=== PATIENT | female | born 1965 | race Caucasian/White ===

== ENCOUNTER 2016-11-04 14:33 | Emergency (ER) | payer OTHER ==
[2016-11-04] MEDS ORDERED: NS 1,000 ML IV ONE (15:08)
--- NOTE | 2016-11-04 15:12 | EDPHY ---
H & P Stated Complaint: DIZZY/LIGHTHEADED/SOB FOR THE LAST MONTH Time Seen by Provider: 11/04/16 14:59 HPI/ROS: CHIEF COMPLAINT: Dyspnea HISTORY OF PRESENT ILLNESS: There is a 51-year-old female who comes to the emergency department sent from her primary care doctor Jazz Whitmore. She has been complaining of mild dyspnea intermittently for the last month they became more constant over the last 3 days. She states that has not intensified but is simply more prolonged. She has not had a fever, cough, sore throat, runny nose etc. She denies chest pain. She does not take any hormones. She does not smoke. She has not had any recent travel or surgeries. No leg pain or swelling. She presented today to her doctor with a heart rate of 96 and saturations of 98% on room air. She also complains of intermittent lightheadedness. She states that this most often occurs when she tried to get out of bed in the morning on Wednesday and Wednesday. She felt like she was going to faint but did not. She laid down for a little while longer and was eventually better enough to get up. She has not gone to work yesterday or today. She was able to exercise for 1 hour yesterday Without dyspnea. She denies having any history of cardiac or pulmonary disease. REVIEW OF SYSTEMS: Constitutional: denies: chills, fever, recent illness, recent injury EENTM: denies: blurred vision, double vision, nose congestion Respiratory: See HPI Cardiac: denies: chest pain, irregular heart rate, lightheadedness, palpitations Gastrointestinal/Abdominal: denies: abdominal pain, diarrhea, nausea, vomiting, blood streaked stools Genitourinary: denies: dysuria, frequency, hematuria, pain Musculoskeletal: denies: joint pain, muscle pain Skin: denies: lesions, rash, jaundice, bruising Neurological: denies: headache, numbness, paresthesia, tingling, dizziness, weakness Hematologic/Lymphatic: denies: blood clots, easy bleeding, easy bruising Immunologic/allergic: denies: HIV/AIDS, transplant EXAM: GENERAL: Well-appearing, well-nourished and in no acute distress. HEAD: Atraumatic, normocephalic. EYES: Pupils equal round and reactive to light, extraocular movements intact, sclera anicteric, conjunctiva are normal. ENT: TMs normal, nares patent, oropharynx clear without exudates. Moist mucous membranes. NECK: Normal range of motion, supple without lymphadenopathy or JVD. LUNGS: Breath sounds clear to auscultation bilaterally and equal. No wheezes rales or rhonchi. HEART: Regular rate and rhythm without murmurs, rubs or gallops. ABDOMEN: Soft, nontender, normoactive bowel sounds. No guarding, no rebound. No masses appreciated. BACK: No CVA tenderness, no spinal tenderness, step-offs or deformities EXTREMITIES: Normal range of motion, no pitting or edema. No clubbing or cyanosis. NEUROLOGICAL: Cranial nerves II through XII grossly intact. Normal speech, normal gait. 5/5 strength, normal movement in all extremities, normal sensation PSYCH: Normal mood, normal affect. SKIN: Warm, dry, normal turgor, no visible rashes or lesions. Source: Patient Exam Limitations: No limitations - Personal History LMP (Females 10-55): 15-21 Days Ago Current Tetanus/Diphtheria Vaccine: No - Medical/Surgical History Hx Asthma: No Hx Chronic Respiratory Disease: No Hx Diabetes: No Hx Cardiac Disease: No Hx Renal Disease: No Hx Cirrhosis: No Hx Alcoholism: No Hx HIV/AIDS: No Hx Splenectomy or Spleen Trauma: No Other PMH: DENIES - Family History Significant Family History: No pertinent family hx - Social History Smoking Status: Never smoked Alcohol Use: Sober Drug Use: None Constitutional: Initial Vital Signs Temperature (C) 36.6 C 11/04/16 14:43 Heart Rate 91 11/04/16 14:43 Respiratory Rate 20 11/04/16 14:43 Blood Pressure 162/105 H 11/04/16 14:43 O2 Sat (%) 98 11/04/16 14:43 O2 Delivery Mode Room Air Allergies/Adverse Reactions: Penicillins Allergy (Verified 11/04/16 14:42) Home Medications: Medication Instructions Recorded PRISTIQ 11/04/16 Medical Decision Making - Diagnostics EKG Interpretation: An EKG obtained and was read and documented in trace view. Please see trace view for full reading and report. Slight S waves in lead 3 only. No other acute ischemic changes or signs of right heart strain Imaging: Imaging Impressions Chest X-Ray 11/04/16 15:08 Impression: Negative chest.. ED Course/Re-evaluation: 5:20 a.m. the patient is asymptomatic. Her vital signs are stable. We discussed her lab results and EKG and chest x-ray which are reassuring. We discussed CT scan although at this point I do not feel that is necessary or indicated. She agrees. She agree to return if her symptoms return or worsen. Otherwise she will follow up with Dr. Whitmore. She understands we do not have a specific diagnosis to explain her intermittent pre syncopal symptoms or vague shortness of breath. Differential Diagnosis: Partial list of the Differential diagnosis considered include but were not limited to; pulmonary embolism, pneumonia, bronchitis, arrhythmia, acute coronary disease and although unlikely based on the history and physical exam, I also considered pneumothorax, dissection, sepsis, dehydration, electrolyte abnormality. I discussed these differential diagnoses and the plan with the patient as well as the usual and expected course. The patient understands that the diagnosis is provisional and that in medicine we are not always correct and that further workup is often warranted. Usual and customary warnings were given. All of the patient's questions were answered. The patient was instructed to return to the emergency department should the symptoms at all worsen or return, otherwise to followup with the physician as we discussed. - Data Points Laboratory Results: Laboratory Results 11/04/16 15:20 11/04/16 15:20 11/04/16 11/04/16 11/04/16 15:20 15:20 15:20 WBC RBC Hgb Hct MCV MCH MCHC RDW Plt Count MPV Neut % (Auto) Lymph % (Auto) Larue % (Auto) Eos % (Auto) Baso % (Auto) Nucleat RBC Rel Count Absolute Neuts (auto) Absolute Lymphs (auto) Absolute Monos (auto) Absolute Eos (auto) Absolute Basos (auto) Absolute Nucleated RBC Immature Gran % Immature Gran # D-Dimer < 0.27 ug/mLFEU ug/mLFEU (0.00-0.50) Sodium 135 mEq/L mEq/L (134-144) Potassium 3.7 mEq/L mEq/L (3.5-5.2) Chloride 99 mEq/L mEq/L (97-110) Carbon Dioxide 19 mEq/l L mEq/l (22-31) Anion Gap 17 mEq/L H mEq/L (8-16) BUN 23 mg/dL mg/dL (7-23) Creatinine 0.9 mg/dL mg/dL (0.6-1.0) Estimated GFR > 60 Glucose 89 mg/dL mg/dL (70-100) Calcium 9.7 mg/dL mg/dL (8.5-10.4) Troponin I < 0.012 ng/mL ng/mL (0-0.034) Beta HCG, Qual NEGATIVE 11/04/16 15:20 WBC 5.26 10^3/uL 10^3/uL (3.80-9.50) RBC 5.62 10^6/uL H 10^6/uL (4.18-5.33) Hgb 17.4 g/dL H g/dL (12.6-16.3) Hct 51.0 % H % (38.0-47.0) MCV 90.7 fL fL (81.5-99.8) MCH 31.0 pg pg (27.9-34.1) MCHC 34.1 g/dL g/dL (32.4-36.7) RDW 12.8 % % (11.5-15.2) Plt Count 227 10^3/uL 10^3/uL (150-400) MPV 9.0 fL fL (8.7-11.7) Neut % (Auto) 56.4 % % (39.3-74.2) Lymph % (Auto) 30.6 % % (15.0-45.0) Larue % (Auto) 11.4 % % (4.5-13.0) Eos % (Auto) 0.4 % L % (0.6-7.6) Baso % (Auto) 1.0 % % (0.3-1.7) Nucleat RBC Rel Count 0.0 % % (0.0-0.2) Absolute Neuts (auto) 2.97 10^3/uL 10^3/uL (1.70-6.50) Absolute Lymphs (auto) 1.61 10^3/uL 10^3/uL (1.00-3.00) Absolute Monos (auto) 0.60 10^3/uL 10^3/uL (0.30-0.80) Absolute Eos (auto) 0.02 10^3/uL L 10^3/uL (0.03-0.40) Absolute Basos (auto) 0.05 10^3/uL 10^3/uL (0.02-0.10) Absolute Nucleated RBC 0.00 10^3/uL 10^3/uL (0-0.01) Immature Gran % 0.2 % % (0.0-1.1) Immature Gran # 0.01 10^3/uL 10^3/uL (0.00-0.10) D-Dimer Sodium Potassium Chloride Carbon Dioxide Anion Gap BUN Creatinine Estimated GFR Glucose Calcium Troponin I Beta HCG, Qual Medications Given: Discontinued Medications Sodium Chloride (Ns) 1,000 mls @ 0 mls/hr IV ONCE ONE PRN Reason: Wide Open Stop: 11/04/16 15:09 Last Admin: 11/04/16 15:50 Dose: 1,000 mls Departure - Departure Disposition: Home, Routine, Self-Care Clinical Impression: Dyspnea Qualifiers: Dyspnea type: unspecified Qualified Code(s): R06.00 - Dyspnea, unspecified Condition: Fair Instructions: Dyspnea (ED) Referrals: Jazz Whitmore MD [Primary Care Provider] - As per Instructions
--- NOTE | 2016-11-04 15:13 | CPEKG ---
Heart Rate: 82 RR Interval: 732 P-R Interval: 148 QRSD Interval: 80 QT Interval: 412 QTC Interval: 482 P Young: 78 QRS Young: -42 T Wave Young: 45 EKG Severity - OTHERWISE NORMAL ECG - EKG Impression: SINUS RHYTHM EKG Impression: LEFT AXIS DEVIATION Electronically Signed By: Van Yanes 04-Nov-2016 15:34:30
[2016-11-04 15:28] LABS: % IMMATURE GRANULYOCYTES 0.2 % (0.0-1.1); ABSOLUTE IMMATURE GRANULOCYTES 0.01 10^3/uL (0.00-0.10); ADD DIFF? NO; ADD MORPH? NO; ADD SCAN? NO; ATYPICAL LYMPHOCYTE FLAG 10 (0-99); FRAGMENT RBC FLAG 0 (0-99); HEMOGLOBIN 17.4 g/dL (12.6-16.3); LEFT SHIFT FLG 0 (0-99); LIPEMIA HEMOLYSIS FLAG 90 (0-99); MEAN CELL HEMOGLOBIN CONCENTR. 34.1 g/dL (32.4-36.7); MEAN CELL VOLUME 90.7 fL (81.5-99.8); PLATELET CLUMPS FLAG 0 (0-99); PLATELET COUNT 227 10^3/uL (150-400); RED BLOOD CELL COUNT 5.62 10^6/uL (4.18-5.33); RED CELL DISTRIBUTION WIDTH 12.8 % (11.5-15.2)
[2016-11-04 15:54] LABS: ANION GAP 17 mEq/L (8-16); CALCIUM 9.7 mg/dL (8.5-10.4); CARBON DIOXIDE 19 mEq/l (22-31); CHLORIDE 99 mEq/L (97-110); CREATININE 0.9 mg/dL (0.6-1.0); GLOMERULAR FILTRATION RATE > 60; GLUCOSE 89 mg/dL (70-100); POTASSIUM 3.7 mEq/L (3.5-5.2); SODIUM 135 mEq/L (134-144)
[2016-11-04 16:04] LABS: TROPONIN I < 0.012 ng/mL (0-0.034)
[2016-11-04 16:12] VITALS: TEMP 98.4
[2016-11-04 17:43] VITALS: BP 150/84; PULSE 82; RESP 15; O2SAT 97
== END 2016-11-04 17:41 | disposition home or self-care (01) ==
DX: R06.00 Dyspnea, unspecified (principal)